=== PATIENT | male | born 1970 | race Two or more races ===

== ENCOUNTER 2020-05-04 00:35 | Emergency (ER) | payer SELFPAY ==
[~2020-05-04] VITALS: Ht 170.2 cm; Wt 70.3 kg
[2020-05-04] MEDS ORDERED: LORazepam Inj 2mg/ml 1ml ONE (00:42)
[2020-05-04] MEDS ORDERED: LORazepam Inj 2mg/ml 1ml IM ONE (00:45)
--- NOTE | 2020-05-04 00:47 | Emergency Room Report ---
History of Present Illness General Chief Complaint: Substance Abuse Present Illness HPI 49-year-old male with a history of schizophrenia "on some psych med" here after drug ingestion. Patient says "someone put venom in my water" and then he soon began to have anxiety and palpitations. At one point the patient did reveal to the paramedics that he did use methamphetamine earlier today. Denies homicidal or suicidal ideation or hallucinations. Says his palpitations began earlier tonight approximately 30 minutes after "I drank the venom." In the emergency department the patient is rambling and speaking incoherently. However he is redirectable and denies any other symptoms such as headache, vision changes, fevers, chills, chest pain, palpitation, shortness of breath, back pain, abdominal pain, nausea, vomiting, diarrhea, dysuria. Allergies: Coded Allergies: No Known Allergies (Unverified , 05/04/20) COVID-19 Screening Contact w/high risk pt: No Experienced COVID-19 symptoms?: No COVID-19 Testing performed MANAGER MUSIC: No Review of Systems All Other Systems: negative except mentioned in HPI Physical Exam Vital Signs Date Time Temp Pulse Resp B/P (MAP) Pulse Ox O2 Delivery O2 Flow Rate FiO2 05/04/20 00:30 98.8 140 20 140/70 (93) 99 Room Air Sp02 EP Interpretation: reviewed, normal General Appearance: no apparent distress, alert, non-toxic Head: normocephalic, atraumatic Eyes: bilateral eye normal inspection, bilateral eye PERRL ENT: hearing grossly normal, normal pharynx, no angioedema, normal voice Neck: full range of motion, supple/symm/no masses Respiratory: chest non-tender, lungs clear, normal breath sounds, speaking full sentences Cardiovascular #1: no edema, other - Tachycardic 135 bpm Cardiovascular #2: 2+ carotid (R), 2+ carotid (L), 2+ radial (R), 2+ radial (L), 2+ dorsalis pedis (R), 2+ dorsalis pedis (L) Gastrointestinal: normal bowel sounds, non tender, soft, non-distended, no guarding, no rebound Rectal: deferred Genitourinary: normal inspection, no CVA tenderness Musculoskeletal: back normal, normal range of motion, gait/station normal, non- tender Neurologic: alert, motor strength/tone normal, sensory intact, responsive, speech normal Psychiatric: anxious, other - Rambling incoherently, anxious Lymphatic: no adenopathy Medical Decision Making Diagnostic Impression: Primary Impression: CKD (chronic kidney disease) Additional Impression: Substance abuse ER Course Total critical care time: Approximately 35 minutes Due to a high probability of clinically significant, life threatening deterioration, the patient required the highest level of preparedness to intervene emergently and I personally spent this critical care time directly and personally managing the patient. This critical care time included obtaining a history, examining the patient, pulse oximetry, ordering and reviewing studies, ordering treatments, evaluating response to treatment and updating management plan as needed, frequent reassessment and discussion with other providers as well as arranging for ultimate disposition. This critical to care time was performed to assess and manage the high probability of life-threatening deterioration that could result in multiorgan failure. This critical care time is separate from the separately billable procedures and treating other patients. EKG: Sinus tachycardia 142 bpm, no ischemia, intervals WNL. No ectopy Rhythm strip: patient monitored for arrhythmias - no malignant dysrhythmias, runs of PVCs, nor pauses noted 49-year-old male here after drug ingestion. Patient was acting erratically and was not cooperative on arrival to the emergency department. He was given Haldol and Ativan with good resolution of his erratic behavior. Lab work revealed elevated creatinine of 2.8. There are no other lab results with which to compare these abnormal findings. Electrolytes all within normal limits. EKG showed sinus tachycardia but was otherwise unremarkable. His sinus tachycardia was resolved after the Haldol and Ativan and patient had a normal heart rate throughout the rest of his stay in the emergency department. He was found to be positive for methamphetamine. He was told to refrain from using illicit substances and given resources for recovery. He was also told that he needs to follow-up with a primary care physician regarding his poor kidney function. He was given 1 L of IV normal saline in the emergency department. Told to stay well-hydrated and avoid sudden says that may worsen his renal function such as NSAIDs. He expressed understanding and was discharged. Laboratory Tests Test 05/04/20 00:45 05/04/20 04:50 White Blood Count 13.3 K/UL (4.8-10.8) H Red Blood Count 5.36 M/UL (4.70-6.10) Hemoglobin 17.1 G/DL (14.2-18.0) Hematocrit 48.4 % (42.0-52.0) Mean Corpuscular Volume 90 FL (80-99) Mean Corpuscular Hemoglobin 32.0 PG (27.0-31.0) H Mean Corpuscular Hemoglobin Concent 35.4 G/DL (32.0-36.0) Red Cell Distribution Width 12.0 % (11.6-14.8) Platelet Count 426 K/UL (150-450) Mean Platelet Volume 5.2 FL (6.5-10.1) L Neutrophils (%) (Auto) 73.5 % (45.0-75.0) Lymphocytes (%) (Auto) 18.3 % (20.0-45.0) L Monocytes (%) (Auto) 7.4 % (1.0-10.0) Eosinophils (%) (Auto) 0.1 % (0.0-3.0) Basophils (%) (Auto) 0.6 % (0.0-2.0) Sodium Level 133 MMOL/L (136-145) L Potassium Level 5.0 MMOL/L (3.5-5.1) Chloride Level 97 MMOL/L (98-107) L Carbon Dioxide Level 26 MMOL/L (21-32) Anion Gap 10 mmol/L (5-15) Blood Urea Nitrogen 28 mg/dL (7-18) H Creatinine 2.9 MG/DL (0.55-1.30) H Estimated Glomerular Filtration Rate 23.1 mL/min (>60) Glucose Level 117 MG/DL (74-106) H Calcium Level 9.6 MG/DL (8.5-10.1) Total Bilirubin 1.3 MG/DL (0.2-1.0) H Direct Bilirubin 0.3 MG/DL (0.0-0.3) Aspartate Amino Transferase (AST) 24 U/L (15-37) Alanine Aminotransferase (ALT) 27 U/L (12-78) Alkaline Phosphatase 95 U/L (46-116) Total Protein 8.2 G/DL (6.4-8.2) Albumin 4.3 G/DL (3.4-5.0) Globulin 3.9 g/dL Albumin/Globulin Ratio 1.1 (1.0-2.7) Salicylates Level 1.0 ug/mL (2.8-20) L Acetaminophen Level < 2 MCG/ML (10-30) L Serum Alcohol < 3 mg/dL Urine Opiates Screen Negative (NEGATIVE) Urine Barbiturates Screen Negative (NEGATIVE) Phencyclidine (PCP) Screen Negative (NEGATIVE) Urine Amphetamines Screen Positive (NEGATIVE) H Urine Benzodiazepines Screen Negative (NEGATIVE) Urine Cocaine Screen Negative (NEGATIVE) Urine Marijuana (THC) Screen Negative (NEGATIVE) Last Vital Signs Date Time Temp Pulse Resp B/P (MAP) Pulse Ox O2 Delivery O2 Flow Rate FiO2 05/04/20 00:30 98.8 140 20 140/70 (93) 99 Room Air Nikolas Savage M.D. May 04, 2020 00:47
[2020-05-04 00:54] LABS: BASOPHILS % (AUTO) 0.6 % (0.0-2.0); EOSINOPHILS % (AUTO) 0.1 % (0.0-3.0); HEMATOCRIT 48.4 % (42.0-52.0); HEMOGLOBIN 17.1 G/DL (14.2-18.0); LYMPHOCYTES % (AUTO) 18.3 % (20.0-45.0); MEAN CORPUSCULAR VOLUME 90 FL (80-99); MONOCYTES % (AUTO) 7.4 % (1.0-10.0); NEUTROPHILS % (AUTO) 73.5 % (45.0-75.0); PLATELET COUNT 426 K/UL (150-450); RED BLOOD COUNT 5.36 M/UL (4.70-6.10); WHITE BLOOD COUNT 13.3 K/UL (4.8-10.8)
[2020-05-04] MEDS ORDERED: Haloperidol 5mg/ml Inj IM ONE (01:00)
[2020-05-04 01:03] VITALS: BP 138/68
[2020-05-04 01:10] LABS: ANION GAP 10 mmol/L (5-15); BLOOD UREA NITROGEN 28 mg/dL (7-18); CALCIUM 9.6 MG/DL (8.5-10.1); CARBON DIOXIDE 26 MMOL/L (21-32); CHLORIDE 97 MMOL/L (98-107); CREATININE 2.9 MG/DL (0.55-1.30); SODIUM 133 MMOL/L (136-145)
[2020-05-04 01:20] LABS: ALANINE AMINOTRANSFERASE 27 U/L (12-78); ALBUMIN 4.3 G/DL (3.4-5.0); ALBUMIN/GLOBULIN RATIO 1.1 (1.0-2.7); ALKALINE PHOSPHATASE 95 U/L (46-116); ASPARTATE AMINO TRANSFERASE 24 U/L (15-37); BILIRUBIN,TOTAL 1.3 MG/DL (0.2-1.0)
[2020-05-04 01:24] LABS: BILIRUBIN,DIRECT 0.3 MG/DL (0.0-0.3)
[2020-05-04 03:10] VITALS: BP 132/74
[2020-05-04 05:21] VITALS: BP 141/72
[2020-05-04 08:17] VITALS: BP 135/81
--- NOTE | 2020-05-09 13:07 | Cardiology Report ---
APPROVED REPORT EKG Measurement Heart [id number] CT [id number] <Conclusion> Sinus tachycardia Left axis deviation Pulmonary disease pattern Abnormal ECG
== END 2020-05-04 08:21 | disposition home or self-care (01) ==
LOC: EDBD 00:35 → EMR 00:51
DX: N18.9 Chronic kidney disease, unspecified (principal); F15.10 Other stimulant abuse, uncomplicated; F41.9 Anxiety disorder, unspecified; R00.2 Palpitations
CPT/HCPCS: 36415; 80053; 80307; 82248; 85025; 93005; 96360; 96361; 96372; 99284; G0480; J1630; J7030